=== PATIENT | male | born 1945 | race Caucasian/White ===

== ENCOUNTER → 2018-12-10 | Outpatient (CLI) | payer OTHER | LOC: EMCIMAGING 12:32 | PROVIDERS: ATTEND Internal Medicine | DX: R41.82 Altered mental status, unspecified (principal); I65.22 Occlusion and stenosis of left carotid artery | CPT/HCPCS: 70553-PN; 93880-PO ==

== ENCOUNTER 2018-12-11 15:48 | Observation (INO) | payer OTHER ==
--- NOTE | 2018-12-11 15:56 | PDCONSULT ---
[employer] Service Technician Note: Below is my neurology clinic note from 12/11/18: - CC: Dr. Lara consulted neurology for stroke. Results placed in EMR for his review. - HPI: 12/11/18: Pt noted some speech problems on 12/03/18. On 12/10/18 he saw his PCM for this. A brain MRI wwo was obtained and showed an acute to subacute left basal ganglia stroke. Pt with DM2 and H1AC of 7.1 so this is likely a small vessel stroke from underlying diabetes. Pt was not on aspirin prior to stroke ( he has since started it). Carotid U/S showed a left carotid plaque but no significant flow-limiting stenosis. Pts neurologic exam was normal. Will have pt go to [facility] ER for admission for acute stroke. Stroke 7 days old so no need for TPA or any intra-arterial therapy. Will get TTE, 24 hour telemetry, PT/OT/ Speech eval, and consider LINQ monitor if no cardiac arrhythmia found. Will also check lipid panel. - ROS: Pt denied acute fever, total vision loss, active severe chest pain, respiratory failure, total body severe rash, total bowel/bladder incontinence, psychosis, active seizures, or active bleeding - O: VS reviewed General: Alert Eyes: Fundoscopic exam not able to visualize optic disks CV: Heart RRR, no murmur, no carotid bruit Lungs: Clear to auscultation bilaterally, no rhonchi or rales Neuro: - Mental: . Oriented x person/place/date . concentration appears normal . speech fluency/comprehension normal . memory appears normal . fund of knowledge appear intact - Cranial Nerves: . II: PERRL, VFFTC . III/IV/: EOMI, no nystagmus, normal smooth pursuits, no Ptosis . V: facial sensation intact to LT . VII: face symmetric to eye closure and smile . VIII: hearing intact to conversation . IX/X: uvula raises symmetrically . XI: SCM 5/5 B/L strength . XII: tongue protrudes midline w/nl strength - Motor: . Tone: normal tone in all 4 extremity . Strength: no pronator drift, strength 5/5 throughout (B/L delt, bic, tri, hand java groovy developer, hf/he, df/pf) - Reflexes: B/L bic/BR/patella 2/4 - Sensory: all 4 extremity intact to light touch - Coord: [id number] wnl, MAURILIO wnl, [id number]-rw-[id number] wnl - Gait: normal casual gait - Labs: 01/04/18- LDL 100 12/10/18- H1AC 7.1H - Rads: 12/10/18- Brain MRI wwo: Acute or subacute moderate-sized ischemic focus involving the left basal ganglia and centrum semiovale, superimposed upon background white matter disease. (I personally visualized the images on 12/11/18 ) - 12/10/18- Carotid U/S: Irregular atherosclerosis in the left internal carotid artery with mild bilateral atherosclerosis, with no hemodynamically significant stenosis by systolic velocity criteria. Arrhythmia. - Assessment: 1. Left basal ganglia stroke likely from small vessel disease on 12/10/18 - Plan: - Begin aspirin 81 mg qd for stroke prevention (not on prior to stroke on ) - TTE and Holter monitor to assess for cardiac cause of stroke, if negative I recommend a LINQ monitor - Labs: lipid panel, if LDL > 70 I will recommend beginning a statin - blood pressure < 140/90 - Work closely with PCM to address H1AC of 7.1H - PT/OT/Speech consults to determine any rehab needs - head CTA looking for any large vessel occlusions - F/U in neurology clinic 1-4 weeks after hospital discharge
--- NOTE | 2018-12-11 16:13 | EDPHY ---
H & P Time Seen by Provider: 12/11/18 15:55 HPI/ROS: CHIEF COMPLAINT: CVA, aphasia HISTORY OF PRESENT ILLNESS: Patient is a 73-year-old male who presents emergency department with acute stroke. He was sent in by his neurologist. Patient states that over the past week he has had difficulty with speech. 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 He denies any other focal neurologic deficits. No weakness or numbness. No visual change. No incoordination. No recent trauma or fall. The patient had an outpatient ultrasound and MRI yesterday. He was seen by Dr. Pate today. REVIEW OF SYSTEMS: 10 systems were reveiwed and are negative with the exception of the elements mentioned in the history of present illness. Past Medical/Surgical History: Includes diabetes, hypertension Past surgical history: Finger surgery, nasal septal surgery Social history: Patient does not smoke Smoking Status: Never smoked Physical Exam: Vitals noted GENERAL: Well-appearing, in no acute distress, alert. HEENT: Eyes normal to inspection, normal pharynx, no signs of dehydration. NECK: Normal, supple. RESPIRATORY: Clear to auscultation bilaterally, no rales, rhonchi or wheezing. CVS: Regular rate and rhythm, no rubs, murmurs, or gallops. ABDOMEN: Soft, nontender, nondistended, no organomegaly. BACK: Normal to inspection, no CVA tenderness. SKIN: Normal color, no rash, warm, dry. No pallor. EXTREMITIES: No pedal edema, no calf tenderness, no Homans sign or cords, no joint swelling. NEURO/PSYCH: Higher functions: Alert and Oriented x3. Slightly slow speech and cognition. Normal mood and affect. Cranial nerves: Normal as tested. Cerebellar: Normal as tested. Good finger to nose, good [id number], normal gait. Peripheral exam: Normal motor exam. Normal sensation. Constitutional: Initial Vital Signs Temperature (C) 36.6 C 12/11/18 15:52 Heart Rate 73 12/11/18 15:52 Respiratory Rate 18 12/11/18 15:52 Blood Pressure 145/86 H 12/11/18 15:52 O2 Sat (%) 96 12/11/18 15:52 O2 Delivery Mode Room Air Allergies/Adverse Reactions: No Known Allergies Allergy (Unverified 12/11/18 15:50) Home Medications: Medication Instructions Recorded Glipizide 12/11/18 Lisinopril 12/11/18 Metformin 1000 mg 12/11/18 Medical Decision Making ED Course/Re-evaluation: In the emergency department I discussed possible etiologies with the patient. I answered all his questions. I reviewed the patient's previous record. The patient's carotid ultrasound from yesterday showed irregular atherosclerosis in the left internal carotid with mild bilateral atherosclerosis. No hemodynamically significant stenosis. It also showed arrhythmia. The patient's MRI showed acute or subacute moderate size ischemic focused involving the left basal ganglia I reviewed Dr. Pate's note from today. He diagnosed patient with a left basal ganglia stroke likely from small vessel disease The patient was unaware of his MRI or carotid ultrasound results. I discussed this with the patient. I answered all his questions. The hospitalist was notified. The patient will be admitted for further evaluation and care. Dr. Pate will consult. Differential Diagnosis: My differential includes but is not limited to ischemic stroke, hemorrhagic stroke, dissection, aneurysm, electrolyte abnormality, sugar abnormality Departure - Departure Disposition: [facility] Acute Clinical Impression: Acute ischemic stroke Condition: Good Referrals: Geoff Lara MD [Primary Care Provider] - As per Instructions
[2018-12-11 16:46] LABS: PLATELET COUNT 195 10^3/uL (150-400)
--- NOTE | 2018-12-11 17:44 | PDGENHP ---
History and Physical - Chief Complaint trouble speaking - History of Present Illness 73yo M with non-insulin dependent diabetes and hypertension who presents from clinic with speech problems. Symptoms started approximately 8-9 days ago. Knew what he wanted to say but was having trouble getting words out. His symptoms seemed to slightly improve over the course of the week. Saw his PCP yesterday who ordered a brain MRI which showed an acute to subacute left basal ganglia stroke. He was referred to Dr Tonio Pate, who saw him in clinic today, and referred him to the ED. The patient was not on aspirin prior to his symptoms however he did take an aspirin last night. On my interview with the patient, he reports that his speech still isn't back to normal. He denies any facial droop, vision changes, weakness, or numbness. History Information - Allergies/Home Medication List Allergies/Adverse Reactions: No Known Allergies Allergy (Unverified 12/11/18 15:50) Home Medications: Aspirin EC [Aspirin EC 81 mg (*)] 81 mg PO HS 12/11/18 [Last Taken 12/10/18] Lisinopril [Zestril 20 mg (*)] 20 mg PO DAILY 12/11/18 [Last Taken 12/11/18] glipiZIDE [Glipizide] 5 mg PO DAILY 12/11/18 [Last Taken 12/11/18] metFORMIN HCL [Metformin HCl ER] 1,000 mg PO BIDMEAL 12/11/18 [Last Taken ] I have personally reviewed and updated: family history, medical history, social history, surgical history - Past Medical History Additional medical history: diabetes (A1c 7.1% from 12/10/18), hypertension, restless legs, PACs, erectile dysfunction - Surgical History Reports: no pertinent surgical hx - Family History Additional family history: father - CABG at age 52, no history of strokes - Social History Smoking Status: Never smoked Alcohol Use: None Drug Use: None Additional social history: Lives with , who is at bedside. 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) Review of Systems Review of Systems: ROS: 10pt was reviewed & negative except for what was stated in HPI & below Physical Exam Physical Exam: Temp Pulse Resp BP Pulse Ox 36.7 C 66 20 160/82 H 95 12/11/18 16:00 12/11/18 17:23 12/11/18 17:23 12/11/18 17:23 12/11/18 17:23 Constitutional: no apparent distress, appears nourished, not in pain Eyes: PERRL, anicteric sclera, EOMI Ears, Nose, Mouth, Throat: moist mucous membranes, hearing normal, ears appear normal, no oral mucosal ulcers Cardiovascular: no murmur, rub, or gallop, other (arrhythmia), No JVD, No edema Respiratory: no respiratory distress, no rales or rhonchi, clear to auscultation Gastrointestinal: normoactive bowel sounds, soft, non-tender abdomen, no palpable masses Genitourinary: no bladder fullness, no bladder tenderness Skin: warm, normal color, no rashes or abrasions, no fluctuance, no induration, No mottled Musculoskeletal: full muscle strength, no muscle tenderness, normal joint ROM, no joint effusions Neurologic: AAOx3, sensation intact bilaterally, CN II-XII Intact, other ( intermittent word finding difficulty), No weakness, No pronator drift, No facial droop Psychiatric: interacting appropriately, not anxious, not encephalopathic, thought process linear Lab Data & Imaging Review 12/11/18 16:06 12/11/18 16:06 WBC 5.84 10^3/uL (3.80-9.50) 12/11/18 16:06 RBC 4.81 10^6/uL (4.40-6.38) 12/11/18 16:06 Hgb 15.0 g/dL (13.7-17.5) 12/11/18 16:06 Hct 43.9 % (40.0-51.0) 12/11/18 16:06 MCV 91.3 fL (81.5-99.8) 12/11/18 16:06 MCH 31.2 pg (27.9-34.1) 12/11/18 16:06 MCHC 34.2 g/dL (32.4-36.7) 12/11/18 16:06 RDW 12.4 % (11.5-15.2) 12/11/18 16:06 Plt Count 195 10^3/uL (150-400) 12/11/18 16:06 MPV 11.1 fL (8.7-11.7) 12/11/18 16:06 Neut % (Auto) 48.4 % (39.3-74.2) 12/11/18 16:06 Lymph % (Auto) 37.3 % (15.0-45.0) 12/11/18 16:06 [place] % (Auto) 10.4 % (4.5-13.0) 12/11/18 16:06 Eos % (Auto) 3.1 % (0.6-7.6) 12/11/18 16:06 Baso % (Auto) 0.5 % (0.3-1.7) 12/11/18 16:06 Nucleat RBC Rel Count 0.0 % (0.0-0.2) 12/11/18 16:06 Absolute Neuts (auto) 2.82 10^3/uL (1.70-6.50) 12/11/18 16:06 Absolute Lymphs (auto) 2.18 10^3/uL (1.00-3.00) 12/11/18 16:06 Absolute Monos (auto) 0.61 10^3/uL (0.30-0.80) 12/11/18 16:06 Absolute Eos (auto) 0.18 10^3/uL (0.03-0.40) 12/11/18 16:06 Absolute Basos (auto) 0.03 10^3/uL (0.02-0.10) 12/11/18 16:06 Absolute Nucleated RBC 0.00 10^3/uL (0-0.01) 12/11/18 16:06 Immature Gran % 0.3 % (0.0-1.1) 12/11/18 16:06 Immature Gran # 0.02 10^3/uL (0.00-0.10) 12/11/18 16:06 Sodium 137 mEq/L (135-145) 12/11/18 16:06 Potassium 4.6 mEq/L (3.5-5.2) 12/11/18 16:06 Chloride 103 mEq/L (97-110) 12/11/18 16:06 Carbon Dioxide 21 mEq/l (22-31) L 12/11/18 16:06 Anion Gap 13 mEq/L (6-14) 12/11/18 16:06 BUN 29 mg/dL (7-23) H 12/11/18 16:06 Creatinine 0.9 mg/dL (0.7-1.3) 12/11/18 16:06 Estimated GFR > 60 12/11/18 16:06 Glucose 128 mg/dL (70-100) H 12/11/18 16:06 Calcium 9.5 mg/dL (8.5-10.4) 12/11/18 16:06 Interpretation: Brain MRI wwo: Acute or subacute moderate-sized ischemic focus involving the left basal ganglia and centrum semiovale, superimposed upon background white matter disease. Carotid U/S: Irregular atherosclerosis in the left internal carotid artery with mild bilateral atherosclerosis, with no hemodynamically significant stenosis by systolic velocity criteria Assessment & Plan Assessment: 73yo M with diabetes and htn presents from clinic after outpatient MRI discovered acute/subacute stroke. Plan: 1. Acute ischemic stroke: Involving left basal ganglia. Very subtle expressive aphasia. Out of TPA window as symptoms started >1 week ago. 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 Diabetes: Recent A1c 7.1% - Holding metformin with contrast, continue glipizide - ACHS glucose checks 3. Hypertension - BP goal <140/90 - Continue home lisinopril VTE ppx: SCDs Code: full Diet: swallow eval, then carb controlled if passes Dispo: Admit under observation
[2018-12-11] MEDS ORDERED: ONDANSETRON DISINTEGRATING 4 MG TAB PO PRN (17:51)
[2018-12-11] MEDS ORDERED: ONDANSETRON 4 MG/2 ML VIAL IVP PRN (17:51)
[2018-12-11] MEDS ORDERED: ACETAMINOPHEN 325 MG TAB PO PRN (17:51)
[2018-12-11] MEDS ORDERED: IOPAMIDOL (ISOVUE 370) 100 ML BTL IV ONE (18:10)
[2018-12-11] MEDS: ASPIRIN 81 MG CHEWABLE TAB PO SCH (20:00)
[2018-12-11] MEDS ORDERED: D50W 25 GM/50 ML VIAL IVP PRN (21:25)
[2018-12-12] MEDS ORDERED: glipiZIDE 5 MG TAB PO SCH (09:00)
[2018-12-12] MEDS ORDERED: LISINOPRIL 20 MG TAB PO SCH (09:00)
[2018-12-12] MEDS: INSULIN LISPRO 100 UNIT/ML SC SCH ×2 (09:31→12:50)
--- NOTE | 2018-12-12 09:40 | NEUROPROG ---
Assessment: [id number] - Neurology Consult: - CC: Dr. Lara consulted neurology for stroke. Results placed in EMR for his review. - Narrative Summary: 12/11/18: Pt noted some speech problems on 12/03/18. On 12/10/18 he saw his PCM for this. A brain MRI wwo was obtained and showed an acute to subacute left basal ganglia stroke. Pt with DM2 and H1AC of 7.1 so this is likely a small vessel stroke from underlying diabetes. Pt was not on aspirin prior to stroke ( he has since started it). Carotid U/S showed a left carotid plaque but no significant flow-limiting stenosis. Pts neurologic exam was normal. Will have pt go to [facility] ER for admission for acute stroke. Stroke 7 days old so no need for TPA or any intra-arterial therapy. Will get TTE, 24 hour telemetry, PT/OT/ Speech eval, and consider LINQ monitor if no cardiac arrhythmia found. Will also check lipid panel. - HPI: F/U 12/12/18: Pt admitted to [facility] last evening. No events overnight. No recurrence of slurred speech. Pts neurologic exam was normal. He did feel he didnt rest as well as at home. - PMHx: DM2, ED, peripheral neuropathy, stroke - SHx: no tobacco FHx: DM2 - ROS: Pt denied acute fever, total vision loss, active severe chest pain, respiratory failure, total body severe rash, total bowel/bladder incontinence, psychosis, active seizures, or active bleeding - O: VS reviewed General: Alert Eyes: Fundoscopic exam not able to visualize optic disks CV: Heart RRR, no murmur, no carotid bruit Lungs: Clear to auscultation bilaterally, no rhonchi or rales Neuro: - Mental: . Oriented x person/place/date . concentration appears normal . speech fluency/comprehension normal . memory appears normal . fund of knowledge appear intact - Cranial Nerves: . II: PERRL, VFFTC . III/IV/: EOMI, no nystagmus, normal smooth pursuits, no Ptosis . V: facial sensation intact to LT . VII: face symmetric to eye closure and smile . VIII: hearing intact to conversation . IX/X: uvula raises symmetrically . XI: SCM 5/5 B/L strength . XII: tongue protrudes midline w/nl strength - Motor: . Tone: normal tone in all 4 extremity . Strength: no pronator drift, strength 5/5 throughout (B/L delt, bic, tri, hand hot die picker, hf/he, df/pf) - Reflexes: B/L bic/BR/patella 2/4 - Sensory: all 4 extremity intact to light touch - Coord: [id number] wnl, MAURILIO wnl, [id number] wnl - Gait: deferred - Labs: 01/04/18- LDL 100 12/10/18- H1AC 7.1H 12/11/18- LDL 76 - Rads: 12/10/18- Brain MRI wwo: Acute or subacute moderate-sized ischemic focus involving the left basal ganglia and centrum semiovale, superimposed upon background white matter disease. - 12/10/18- Carotid U/S: Irregular atherosclerosis in the left internal carotid artery with mild bilateral atherosclerosis, with no hemodynamically significant stenosis by systolic velocity criteria. Arrhythmia. - 12/11/18- CTA head/neck: no flow limiting stenosis, mild atherosclerotic disease , no significant findings (I personally visualized the images on 12/12/18) - Assessment: 1. Left basal ganglia stroke likely from small vessel disease on 12/10/18 - Plan: - Begin aspirin 81 mg qd for stroke prevention (not on prior to stroke on ) - TTE and Holter monitor to assess for cardiac cause of stroke, if negative I recommend a LINQ monitor - LDL > 70 (76), I recommend beginning a low dose statin - blood pressure < 140/90 - Work closely with PCM to address H1AC of 7.1H - PT/OT/Speech consults to determine any rehab needs - F/U in neurology clinic 1-4 weeks after hospital discharge Objective: Vital Signs Temp Pulse Resp BP Pulse Ox 36.8 C 62 16 147/76 H 94 12/12/18 08:00 12/12/18 08:00 12/12/18 08:00 12/12/18 08:00 12/12/18 08:00 12/11/18 12/12/18 12/13/18 05:59 05:59 05:59 Intake Total 500 Output Total 250 400 Balance 250 -400 Allergies/Adverse Reactions: No Known Allergies Allergy (Unverified 12/11/18 15:50)
[2018-12-12] MEDS: ASPIRIN 81 MG CHEWABLE TAB PO SCH (09:41)
[2018-12-12 11:32] VITALS: BP 143/74
--- NOTE | 2018-12-12 13:29 | ECHO ---
[email or web address] [address] [address] Main: [phone] Echocardiography Examination Transthoracic Name: AFSANEH OWEN MR#: [id number] Study Date: 12/12/2018 Study Time: 08:38 AM Date of : 1945 Age: 73 year(s) Height: 177.8 cm (70 in.) Weight: 88 kg (194 lb.) BSA: 2.06 m2 Gender: Male Examination: Echo with Agitated Saline Contrast: I.V. dose of agitated saline Image Quality: Adequate Rhythm: Heart Rate: BP: / Indication: ischemic stroke Procedure Staff Referring Physician: Safety Lamp Keeper: Melissa Tarango [facility] Reading Physician: Pastor Waldrop MD Requesting Provider: Ordering Physician: Hardik Patterson Indication: ischemic stroke Measurements Chambers AV/MV Label Value Normal Value Label Value Normal Value IVSd, 2D 1.1 cm (0.6cm - 1.1cm) AV PGmax 5 mmHg LVDd, 2D 4.2 cm (4.2cm - 5.9cm) AV Vmax 1.15 m/s LVDs, 2D 3 cm (2.1cm - 4cm) LILY (continuity eq. 2.5 cm2 LVEF, 2D 57 % (54% - 74%) Vmax) LVEF, BP 57 % (55% - 70%) MV A Vmax 0.97 m/s LVEF, MOD4 69 % (55% - 70%) MV DT 165 ms LVOT PGmax 3 mmHg MV E' lateral 0.07 m/s LVOT Vmax 0.83 m/s (0.7m/s - 1.1m/s) MV E' mean 0.07 m/s LVOTd 2.1 cm (1.9cm - 2.1cm) MV E' septal 0.07 m/s LVPWd, 2D 0.8 cm (0.6cm - 1cm) MV E Vmax 0.74 m/s RVDd, 2D 3.5 cm (1.9cm - 3.8cm) MV E/A 0.76 TAPSE 1.9 cm MV E/E' lateral 10.1 LA Volume, A4C 77 ml (16ml - 34ml) MV E/E' mean 10.57 LA Volume, BP 66 ml (18ml - 58ml) MV E/E' septal 10.6 (0.45 - 1.25) LAD Index, 2D 1.65 cm/m2 TV/PV LADs, 2D 3.4 cm (3cm - 4cm) Label Value Normal Value LAESV index, MOD4 37.4 ml/m2 PV PGmax 4 mmHg RA Area 15 cm2 PV Vmax, Caliper 0.96 m/s (0.6m/s - 0.9m/s) Additional Vessels Patient: AFSANEH OWEN Study Date: 12/12/2018 Page 1 of 3 08:38 AM Label Value Normal Value AoAsc 2.9 cm AoRoot, 2D 3.2 cm (1.4cm - 2.6cm) Conclusions Left Ventricle: CONCLUSIONS:1)Normal LV size and systolic function with a LVEF of 57% and normal wall motions.2)Mild concentric LVH with mild diastolic dysfunction noted.3)Mild left atrial enlargement noted.4)Aortic valve sclerosis without . Trivial AI is noted.5)Mild MR without MV prolapse.6)Mild TR noted. Unable to accurately assess PA pressures.7)No clot seen in left ventricle.8)Negative IV bubble study for any abnormal intracardiac shunting. Findings Left Ventricle: Left ventricle is normal in size. CONCLUSIONS: 1)Normal LV size and systolic function with a LVEF of 57% and normal wall motions. 2)Mild concentric LVH with mild diastolic dysfunction noted. 3)Mild left atrial enlargement noted. 4)Aortic valve sclerosis without . Trivial AI is noted. 5)Mild MR without MV prolapse. 6)Mild TR noted. Unable to accurately assess PA pressures. 7)No clot seen in left ventricle. 8)Negative IV bubble study for any abnormal intracardiac shunting. The ejection fraction, measured by Simpsons method, is 57 %. There is mild concentric left ventricular hypertrophy. There are no regional wall motion abnormalities. Grade I Diastolic Dysfunction. Right Ventricle: Normal size right ventricle. Right ventricular wall thickness is normal. Right ventricular systolic function is normal. Left Atrium: The left atrium is mildly dilated. IAS: An agitated saline study was performed and was negative for intracardiac shunting. Right Atrium: The right atrium is normal in size. Mitral Valve: Mild mitral regurgitation. No mitral valve stenosis. There is mild mitral calcification. There is mild mitral thickening. Aortic Valve: Aortic leaflets exhibit normal cuspal separation. Trivial aortic regurgitation is present. There is no aortic stenosis. There is aortic sclerosis present. Tricuspid Valve: Tricuspid valve leaflets are normal in appearance and function. Mild tricuspid regurgitation. No tricuspid valve stenosis. Pulmonary artery pressure cannot be assessed due to inadequate TR signal. Pulmonic Valve: Pulmonic leaflets exhibit normal cuspal separation. No pulmonic valve regurgitation is evident. Aorta: The aortic root size in 2D measures 3.2 cm. The aortic root exhibits normal size. The ascending aorta measures 2.9 cm. Ascending aorta is normal in size. Aorta Measurements AoRoot, 2D is 3.2 cm. IVC: The inferior vena cava is normal in size and course. Pericardium: Patient: AFSANEH OWEN Study Date: 12/12/2018 Page 2 of 3 08:38 AM No pericardial effusion. Exam Details Procedure Ordered: Echo with Agitated Saline Procedure Status: Routine study Image Quality: Adequate Contrast: I.V. dose of agitated salineIntravenous contrast was administered to evaluate shunting Facility Location: Cardiac Echo 1 (No Signature Object) Patient: AFSANEH OWEN Study Date: 12/12/2018 Page 3 of 3 08:38 AM [id number]
--- NOTE | 2018-12-12 15:20 | PDDCSUM ---
Discharge Summary Discharge Summary: Date of Admission: 12/11/2018 Date of Discharge: 12/12/2018 Consults: Neurology Procedures: TTE Bubble study, CT Head, MRI Brain Followup: Neurology, Holter Monitor/Cardiology, PCP 73yo M with diabetes and htn presents from clinic after outpatient MRI discovered acute/subacute stroke. Plan: 1. Acute ischemic stroke: Involving left basal ganglia. Very subtle expressive aphasia. Out of TPA window as symptoms started >1 week ago. 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 Waldrop to review after completed 2. Diabetes: Recent A1c 7.1% - Held metformin with contrast, continue glipizide - ACHS glucose checks 3. Hypertension - BP goal <140/90 - Continue home lisinopril Time spent on discharge was >35 minutes with >50% of time spent on patient education and counseling.
[2018-12-13] MEDS ORDERED: ATORVASTATIN CALCIUM 20 MG TAB PO SCH (09:00)
== END 2018-12-12 14:48 | disposition home or self-care (01) ==
LOC: F3N 20:12
PROVIDERS: ADMIT Internal Medicine; ATTEND Internal Medicine
DX: E11.59 Type 2 diabetes mellitus with other circulatory complications (principal); I63.532 Cerebral infarction due to unspecified occlusion or stenosis of left posterior cerebral artery; R47.01 Aphasia; Z79.84 Long term (current) use of oral hypoglycemic drugs; I10 Essential (primary) hypertension
CPT/HCPCS: 70496; 70498; 92523; 93306; 97161; 97166; G0378; Q9967